=== PATIENT | male | born 1975 | race Caucasian/White ===

== ENCOUNTER 2018-08-09 09:42 | Emergency (ER) | payer OTHER ==
[2018-08-09] MEDS: NICARDipine HCL 30 MG CAPSULE PO ×2 (10:13→12:07)
== END 2018-08-09 12:27 | disposition home or self-care (01) ==
LOC: E/R 09:42
DX: I10 Essential (primary) hypertension (principal); R40.2142 Coma scale, eyes open, spontaneous, at arrival to emergency department; R40.2362 Coma scale, best motor response, obeys commands, at arrival to emergency department; R40.2252 Coma scale, best verbal response, oriented, at arrival to emergency department
CPT/HCPCS: 70450; 99284-25